=== PATIENT | female | born 1990 | race Caucasian/White ===

== ENCOUNTER 2016-07-05 14:18 | Emergency (ER) | payer MEDICAID ==
[~2016-07-05 14:18] MED LIST: ANTI-DIARRHEAL2 M2 PO; BACTRIM DS TAB1 EAC2 PO; BIRTH CONTROL; VENTOLIN HFA18 G2 PO; ZOFRAN ODT4 MG PO
[2016-07-05] MEDS ORDERED: PROPRANOLOL HCL10 M1 PO (14:26)
[2016-07-05] MEDS ORDERED: MECLIZINE HCL25 M3 PO (14:27)
[2016-07-05] MEDS ORDERED: ZYRTEC10 M7 PO (14:27)
[2016-07-05 16:41] LABS: BASO % 0.1 % (0-2); EOS % 1.6 % (0-7); EOSINOPHIL ABSOLUTE COUNT 0.2 tho/cmm (0.0-0.7); HCT-HEMATOCRIT 39.6 % (34.0-49.0); HGB-HEMOGLOBIN 13.9 gm/dl (12.0-15.5); IMMATURE GRANULOCYTES ABSOLUTE 0.02 tho/cmm (0-0.03); IMMATURE GRANULOCYTES PERCENT 0.2 % (0-0.3); LYMPH % 19.7 % (20-45); LYMPH ABSOLUTE COUNT 1.8 tho/cmm (0.8-4.5); MCH (MEAN CORPUSCULAR HGB) 28.3 pg (28.0-32.0); MCHC MEAN CORPUSCULAR HGB CONC 35.1 % (32.0-36.0); MCV (MEAN CELL VOLUME) 80.5 fl (82.0-96.0); MEAN PLATELET VOLUME 10.1 cmc (9.4-12.4); MONO % 5.8 % (0-12); MONOCYTE ABSOLUTE COUNT 0.5 tho/cmm (0.0-1.2); NEUTROPHIL ABSOLUTE COUNT 6.6 tho/cmm (1.6-8.0); NEUTROPHIL-AUTOMATED 6.6 tho/cmm (1.6-8.0); NEUTROPHILS % 72.6 % (40-80); PLATELET COUNT 236 tho/cmm (150-450); RED BLOOD COUNT 4.92 mil/cmm (4.00-5.20); RED CELL DISTRIBUTION WIDTH 13.1 % (12.4-16.4); WHITE BLOOD COUNT 9.1 tho/cmm (4.0-10.0)
[2016-07-05 16:58] LABS: PREGNANCY-SERUM NEGATIVE (NEGATIVE)
[2016-07-05 17:01] LABS: ANION GAP 15 mmol/L (0-20); BLOOD UREA NITROGEN 9 mg/dl (6-24); CALCIUM 9.2 mg/dl (8.5-10.5); CARBON DIOXIDE-VENOUS 24 mmol/L (22-32); CHLORIDE 106 mmol/l (96-110); CREATININE 0.56 mg/dl (0.50-1.10); GLUCOSE 83 mg/dL (70-110); POTASSIUM 3.6 mmol/L (3.7-5.1); SODIUM 141 mmol/L (135-145); eGFR VALUE FOR BLACK >90 mL/Min
[2016-07-05 17:05] LABS: TSH-THYROID STIMULATING HORM. <0.01 uIU/ml (0.40-3.80)
[2016-09-08] MEDS ORDERED: TAPAZOLE5 M1 PO (17:27)
[2016-10-11] MEDS ORDERED: IBUPROFEN800 M1 PO (11:12)
[2016-10-11] MEDS ORDERED: TYLENOL WITH C1 EACH PO (11:12)
[2016-10-11] MEDS ORDERED: VISTARIL25 M1 PO (13:08)
[2016-12-05] MEDS ORDERED: HYDROXYZINE HCL25 M1 PO (08:50)
[2016-12-05] MEDS ORDERED: MAPAP325 M2 PO (08:50)
[2016-12-05] MEDS ORDERED: NEPTAZANE50 M1 PO (08:51)
[2016-12-05] MEDS ORDERED: PROPRANOLOL HCL10 M1 PO (08:51)
[2016-12-05] MEDS ORDERED: AMOXICILLIN875 M1 PO (08:52)
[2016-12-05] MEDS ORDERED: CELEXA10 M1 PO (08:52)
[2016-12-05] MEDS ORDERED: PROAIR HFA8.5 GM INH (08:56)
[2016-12-05] MEDS ORDERED: PREDNISONE10 M1 PO (08:56)
== END 2016-07-05 17:23 ==
LOC: EDMED 14:18
PROVIDERS: Emergency Medicine
DX: E05.90 Thyrotoxicosis, unspecified without thyrotoxic crisis or storm (principal); F41.9 Anxiety disorder, unspecified

== ENCOUNTER 2016-07-27 09:34 | Emergency (ER) | payer MEDICAID ==
[~2016-07-27 09:34] MED LIST changes: +MECLIZINE HCL25 M3 PO; +PROPRANOLOL HCL10 M1 PO; +ZYRTEC10 M7 PO
[2016-07-27 10:12] LABS: BASO % 0.2 % (0-2); EOS % 2.2 % (0-7); EOSINOPHIL ABSOLUTE COUNT 0.1 tho/cmm (0.0-0.7); HCT-HEMATOCRIT 37.5 % (34.0-49.0); HGB-HEMOGLOBIN 12.9 gm/dl (12.0-15.5); IMMATURE GRANULOCYTES ABSOLUTE 0.01 tho/cmm (0-0.03); IMMATURE GRANULOCYTES PERCENT 0.2 % (0-0.3); LYMPH % 36.5 % (20-45); LYMPH ABSOLUTE COUNT 1.5 tho/cmm (0.8-4.5); MCH (MEAN CORPUSCULAR HGB) 27.8 pg (28.0-32.0); MCHC MEAN CORPUSCULAR HGB CONC 34.4 % (32.0-36.0); MCV (MEAN CELL VOLUME) 80.8 fl (82.0-96.0); MEAN PLATELET VOLUME 10.5 cmc (9.4-12.4); MONO % 8.7 % (0-12); MONOCYTE ABSOLUTE COUNT 0.4 tho/cmm (0.0-1.2); NEUTROPHIL ABSOLUTE COUNT 2.2 tho/cmm (1.6-8.0); NEUTROPHIL-AUTOMATED 2.2 tho/cmm (1.6-8.0); NEUTROPHILS % 52.2 % (40-80); PLATELET COUNT 221 tho/cmm (150-450); RED BLOOD COUNT 4.64 mil/cmm (4.00-5.20); RED CELL DISTRIBUTION WIDTH 13.4 % (12.4-16.4); WHITE BLOOD COUNT 4.2 tho/cmm (4.0-10.0)
[2016-07-27 10:28] LABS: URINE BILIRUBIN NEGATIVE (NEG); URINE BLOOD SMALL (NEG); URINE GLUCOSE (UA) NEGATIVE (NEG); URINE KETONE NEGATIVE (NEG); URINE LEUKOCYTE ESTERASE NEGATIVE (NEG); URINE NITRITE NEGATIVE (NEG); URINE PROTEIN NEGATIVE (NEG); URINE SPECIFIC GRAVITY 1.015 (1.003-1.030)
[2016-07-27 10:43] LABS: URINE APPEARANCE CLEAR; URINE COLOR PALE YELLOW
[2016-07-27 10:55] LABS: URINE RBC 0 /[HPF] (0-5); URINE WBC 0 /[HPF] (0-5)
[2016-07-27] MEDS ORDERED: NORCO 5-325 TA1 EACH PO (11:08)
[2016-09-08] MEDS ORDERED: TAPAZOLE5 M1 PO (17:27)
[2016-10-11] MEDS ORDERED: IBUPROFEN800 M1 PO (11:12)
[2016-10-11] MEDS ORDERED: TYLENOL WITH C1 EACH PO (11:12)
[2016-10-11] MEDS ORDERED: VISTARIL25 M1 PO (13:08)
[2016-12-05] MEDS ORDERED: MAPAP325 M2 PO (08:50)
[2016-12-05] MEDS ORDERED: HYDROXYZINE HCL25 M1 PO (08:50)
[2016-12-05] MEDS ORDERED: NEPTAZANE50 M1 PO (08:51)
[2016-12-05] MEDS ORDERED: PROPRANOLOL HCL10 M1 PO (08:51)
[2016-12-05] MEDS ORDERED: CELEXA10 M1 PO (08:52)
[2016-12-05] MEDS ORDERED: AMOXICILLIN875 M1 PO (08:52)
[2016-12-05] MEDS ORDERED: PREDNISONE10 M1 PO (08:56)
[2016-12-05] MEDS ORDERED: PROAIR HFA8.5 GM INH (08:56)
== END 2016-07-27 11:32 ==
LOC: EDMED 09:34
PROVIDERS: Emergency Medicine
DX: N94.6 Dysmenorrhea, unspecified (principal); N83.292 Other ovarian cyst, left side
CPT/HCPCS: P9612